=== PATIENT | female | born 1985 | race Caucasian/White ===

== ENCOUNTER 2016-10-03 06:15 | Emergency (ER) | payer OTHER ==
--- NOTE | ~2016-10-03 | CR170 ---
[facility]. [facility] A Service of [facility] & [facility] RADIOLOGY TEXT RESULTS PATIENT: MARÍA ELENA HIGGINS LOCATION: SED : 85 UNIT #: [id number] AGE: [address]: Melina Jamison MD SEX: F ORDER DR: [id number] [place] [id number] E MR#: [id number] Acc #: [id number] NAME: MARÍA ELENA HIGGINS : 1985 SEX: F STUDY DATE/TIME: 10/03/2016 7:02 UNIT: SED ROOM: STUDY DESCRIPTION: CR Knee 2 Views Rt Attending Physician: Melina Jamison M.D. Ordering Physician: Melina Jamison M.D. Primary Care Physician: Primary Care Physician No MEDICAL IMAGING REPORT This report is preliminary unless electronic signature is present. EXAM Right knee AP and lateral 2 views, 10/03/2016 HISTORY Knee pain after a fall this morning at 04:30 FINDINGS AP and lateral projection of the knee shows smooth articular anatomy without indication of fracture or dislocation at the major weight-bearing surface of the knee. There is no indication of radiopaque foreign body about the knee surface or joint effusion. IMPRESSION Normal knee. Dictated by... Ralph Peck M.D. THIS IS AN ELECTRONICALLY VERIFIED REPORT Ralph Peck M.D. at 10/03/2016 3:56 PM JENNIFER/jarvis TD: 10/03/2016 08:22 JOB #: [id number] MEDICAL IMAGING REPORT Page 1 of 1
[~2016-10-03 06:15] MED LIST: BACTRIM DS TABL1 TA2 PO; BUSPAR5 M1 PO; DOCUSATE SODIU100 MG PO; MIRALAX17 GM PO; MOBIC PO; MOTRIN400 MG; NEURONTIN PO; ROBAXIN500 MG PO; TESSALON PERLES PO; VOLTAREN50 MG PO; ZITHROMAX PO
[2016-10-03] MEDS ORDERED: NO MEDICATIONS (06:26)
== END 2016-10-03 07:57 | disposition home or self-care (01) ==
LOC: SED 06:15
DX: S83.91XA Sprain of unspecified site of right knee, initial encounter (principal); F17.200 Nicotine dependence, unspecified, uncomplicated; W01.0XXA Fall on same level from slipping, tripping and stumbling without subsequent striking against object, initial encounter; Y92.009 Unspecified place in unspecified non-institutional (private) residence as the place of occurrence of the external cause
CPT/HCPCS: 29505; 73560; 99283